=== PATIENT | male | born 1965 | race Caucasian/White ===

== ENCOUNTER 2025-03-16 03:59 | Emergency (ER) | payer OTHER ==
[~2025-03-16] VITALS: Ht 180.3 cm; Wt 79.4 kg
[2025-03-16] MEDS: DICYCLOMINE HCL INJ 20 MG/2 ML AMPUL IM ONE (05:00)
[2025-03-16] MEDS: MORPHINE SULFATE INJ 2 MG/ML DISP.SYRIN IV ONE (05:00)
[2025-03-16] MEDS ORDERED: DICYCLOMINE HCL INJ 20 MG/2 ML AMPUL IM ONE (05:01)
[2025-03-16] MEDS ORDERED: ONDANSETRON HCL/PF 4 MG/2 ML VIAL ONE (05:02)
[2025-03-16] MEDS ORDERED: MORPHINE SULFATE INJ 2 MG/ML DISP.SYRIN ONE (05:02)
[2025-03-16] MEDS: IV NS 0.9% 1,000 ML BAG IV ONE (05:09)
[2025-03-16] MEDS: ONDANSETRON HCL/PF 4 MG/2 ML VIAL IVP ONE (05:09)
[2025-03-16 05:10] LABS: BASOPHILS % (AUTO) 0.4 % (0.0-2.0); EOSINOPHILS % (AUTO) 0.1 % (0.0-6.0); HEMATOCRIT 42 % (39-51); HEMOGLOBIN 14.6 g/dL (13.5-17.5); LYMPHOCYTES # (AUTO) 1.2 K/uL (0.8-4.8); LYMPHOCYTES % (AUTO) 16.4 % (20.0-44.0); MEAN CORPUSCULAR HEMOGLOBIN 32 PG (26.0-33.0); MEAN CORPUSCULAR HGB CONC 35 g/dl (31.0-36.0); MEAN CORPUSCULAR VOLUME 90 fL (80-96); MONOCYTES # (AUTO) 0.6 K/uL (0.1-1.30); MONOCYTES % (AUTO) 7.9 % (2.0-12.0); NEUTROPHILS # (AUTO) 5.3 K/uL (1.8-8.9); NEUTROPHILS % (AUTO) 75.2 % (43.0-81.0); PLATELET COUNT (AUTO) 178 K/uL (150-450); RED BLOOD CELL COUNT(AUTO) 4.63 MIL/uL (4.5-6.0); RED CELL DISTRIBUTION WIDTH 13.4 % (11.5-15.0); WHITE BLOOD COUNT (AUTO) 7.1 K/uL (4.3-11.0)
[2025-03-16 05:17] LABS: CALCIUM, SERUM 10.1 mg/dL (8.5-10.1); POTASSIUM 3.8 mmol/L (3.5-5.1)
[2025-03-16 05:23] LABS: ALBUMIN 4.3 g/dL (3.4-5.0); BILIRUBIN,DIRECT 0.3 mg/dL (0.0-0.2); BILIRUBIN,TOTAL 1.6 mg/dL (0.2-1.0); INR 1.06 (0.91-1.10); PARTIAL THROMBOPLASTIN TIME 30.4 SEC (24.3-34.3); PROTHROMBIN TIME 11.2 SECS (9.2-11.1); TOTAL PROTEIN, SERUM 7.8 g/dL (6.4-8.2)
[2025-03-16 05:45] LABS: APPEARANCE,URINE CLEAR (CLEAR); BILIRUBIN,URINE NEGATIVE (NEGATIVE); BLOOD, URINE NEGATIVE Ery/uL (NEGATIVE); COLOR,URINE YELLOW (YELLOW); KETONES,URINE 3+ mg/dL (NEGATIVE); LEUKOCYTE ESTERASE ,URINE NEGATIVE (NEGATIVE); NITRITE, URINE NEGATIVE (NEGATIVE); PH,URINE 8.5 (5.0-8.0); PROTEIN,URINE 2+ mg/dl (NEGATIVE); UGLUCOSE NEGATIVE (NEGATIVE); UROBILINOGEN,URINE 0.2 EU/dL (0.2)
[2025-03-16 06:01] LABS: MUCUS,URINE Many /LPF (None Seen)
[2025-03-16 06:02] LABS: BACTERIA,URINE Moderate /HPF (None Seen)
[2025-03-16 06:08] LABS: ADD URINE CULTURE YES; SQUAMOUS EPITHELIAL CELL,UR Moderate /HPF (None Seen)
[2025-03-16] MEDS ORDERED: ONDA4TAB5 PO (07:06)
[2025-03-16] MEDS ORDERED: CIPR500T5 PO (09:06)
[2025-03-16 09:30] VITALS: BP 134/59; TEMP 98.2; O2SAT 98
== END 2025-03-16 09:30 | disposition home or self-care (01) ==
LOC: ER 04:24
DX: K52.9 Noninfective gastroenteritis and colitis, unspecified (principal); R11.2 Nausea with vomiting, unspecified
CPT/HCPCS: 99285; 74176; 96374; 76705; 96361; 96375; 85025; 80048; 87086; 83690; 80076; 81001; 36415; 85730; 96372; J2405; J7030; J0500; J2270